=== PATIENT | male | born 1950 | race Caucasian/White ===

== ENCOUNTER → 2017-08-24 | Outpatient (CLI) | payer MEDICARE, OTHER | LOC: M ADAMS 14:27 | DX: M25.561 Pain in right knee (principal); M17.11 Unilateral primary osteoarthritis, right knee | CPT/HCPCS: 73564 ==

== ENCOUNTER → 2017-09-18 | Outpatient (REF) | payer MEDICARE, OTHER ==
[2017-09-18 13:31] LABS: HEMOGLOBIN 12.3 g/dl (14.0-18.0)
[2017-09-18 13:55] LABS: ALBUMIN 3.7 GM/DL (3.2-5.2)
[2017-09-18 13:55] LABS: FERRITIN 34 NG/ML (26-388); IRON (FE) 118 UG/DL (65-175); PERCENT SATURATION 33.4 % (19.7-50.0); TOTAL IRON BINDING CAPACITY 353 UG/DL (250-450)
[2017-09-18 14:19] LABS: ESTIMATED AVERAGE GLUCOSE 174 MG/DL (60-110); HEMOGLOBIN A1c 7.7 %
== END ==
LOC: M LABDRWAD 12:59
DX: Z01.818 Encounter for other preprocedural examination (principal); M17.11 Unilateral primary osteoarthritis, right knee; D63.8 Anemia in other chronic diseases classified elsewhere; M25.569 Pain in unspecified knee
CPT/HCPCS: 82040

== ENCOUNTER 2017-10-13 13:04 | Emergency (ER) | payer MEDICARE, BC, OTHER | END 2017-10-13 14:54 | disposition home or self-care (01) | LOC: M ED 13:04 | DX: R22.41 Localized swelling, mass and lump, right lower limb (principal); Z98.890 Other specified postprocedural states; I10 Essential (primary) hypertension; E66.9 Obesity, unspecified; Z87.891 Personal history of nicotine dependence; Z79.82 Long term (current) use of aspirin; Z79.899 Other long term (current) drug therapy | CPT/HCPCS: 93971 ==

== ENCOUNTER 2018-02-13 06:31 | Day surgery (SDC) | payer MEDICARE, BC, OTHER ==
[2018-02-13] MEDS: NS 1,000 ML IV (06:00)
[2018-02-13] MEDS ORDERED: PROPOFOL 200 MG/20 ML VIAL As Ordered (07:58)
== END 2018-02-13 08:27 | disposition home or self-care (01) ==
LOC: M OPP 06:31
DX: Z12.11 Encounter for screening for malignant neoplasm of colon (principal); K64.0 First degree hemorrhoids; D12.2 Benign neoplasm of ascending colon; K57.30 Diverticulosis of large intestine without perforation or abscess without bleeding; I10 Essential (primary) hypertension; Z79.82 Long term (current) use of aspirin; Z79.899 Other long term (current) drug therapy; Z80.41 Family history of malignant neoplasm of ovary; Z98.84 Bariatric surgery status; Z87.891 Personal history of nicotine dependence; Z95.5 Presence of coronary angioplasty implant and graft; Z96.651 Presence of right artificial knee joint
CPT/HCPCS: 45380

== ENCOUNTER → 2019-09-26 | Outpatient (REF) | payer MEDICARE, OTHER ==
[~2019-09-26] MED LIST: ASPI-255 PO; ATOR40TA75 PO; CARV12.5 PO; COLA100C5 PO; FLIN1CHW PO; IRON65TA PO; LISI-538 PO; OXYC-517 PO; VITA250L PO
[2019-09-26 18:20] LABS: IRON (FE) 63 UG/DL (65-175); PERCENT SATURATION 14.9 % (19.7-50.0); TOTAL IRON BINDING CAPACITY 422 UG/DL (250-450)
[2019-09-26 19:08] LABS: FOLATE > 24.0 NG/ML; VITAMIN B12 LEVEL > 2000 PG/ML
== END ==
LOC: M LAB REF 16:49
PROVIDERS: ATTEND Internal Medicine
DX: Z98.84 Bariatric surgery status (principal); D64.9 Anemia, unspecified

== ENCOUNTER → 2019-12-25 | Outpatient (REF) | payer MEDICARE, OTHER ==
[2019-12-25 12:50] LABS: PERCENT SATURATION 24.9 % (19.7-50.0)
== END ==
LOC: M LAB REF 11:19
PROVIDERS: ATTEND Internal Medicine
DX: D64.9 Anemia, unspecified (principal)

== ENCOUNTER → 2020-10-01 | Outpatient (REF) | payer MEDICARE, OTHER ==
[~2020-10-01] MED LIST changes: -LISI-538 PO; +LISI20TA33 PO
[2020-10-01 17:02] LABS: IRON (FE) 90 UG/DL (65-175); TOTAL IRON BINDING CAPACITY 322 UG/DL (250-450)
[2020-10-01 17:14] LABS: FOLATE > 24.0 NG/ML; VITAMIN B12 LEVEL > 2000 PG/ML
== END ==
LOC: M LAB REF 16:21
PROVIDERS: ATTEND Internal Medicine
DX: D64.9 Anemia, unspecified (principal); Z98.84 Bariatric surgery status

== ENCOUNTER → 2021-10-11 | Outpatient (REF) | payer MEDICARE, OTHER ==
[2021-10-11 16:53] LABS: IRON (FE) 106 UG/DL (65-175); PERCENT SATURATION 29.9 % (19.7-50.0); TOTAL IRON BINDING CAPACITY 354 UG/DL (250-450)
[2021-10-11 17:09] LABS: FOLATE > 24.0 NG/ML; VITAMIN B12 LEVEL > 2000 PG/ML
== END ==
LOC: M LAB REF 16:11
PROVIDERS: ATTEND Internal Medicine
DX: Z98.84 Bariatric surgery status (principal); Z79.899 Other long term (current) drug therapy

== ENCOUNTER → 2022-07-27 | Outpatient (REF) | payer MEDICARE, OTHER ==
[2022-07-27 13:19] LABS: BACTERIA, URINE LARGE AMOUNT; WBC, URINE TNTC /hpf (0-3)
[2022-07-27 13:21] LABS: RBC, URINE TNTC /hpf (0-3)
[2022-07-27 13:22] LABS: HYALINE CAST, URINE NONE SEEN /lpf (0-1); SQUAMOUS EPITHELIAL CELL URINE SMALL AMOUNT /hpf (SMALL AMT)
== END ==
LOC: M LAB REF 12:02
PROVIDERS: ATTEND Physician Assistant Medical
DX: R30.0 Dysuria (principal)

== ENCOUNTER → 2022-08-08 | Outpatient (REF) | payer MEDICARE, OTHER | LOC: M LAB REF 12:28 | PROVIDERS: ATTEND Internal Medicine | DX: N39.0 Urinary tract infection, site not specified (principal) ==

== ENCOUNTER → 2022-10-20 | Outpatient (REF) | payer MEDICARE, OTHER ==
[2022-10-20 18:57] LABS: TOTAL IRON BINDING CAPACITY 343 UG/DL (250-425)
[2022-10-20 18:58] LABS: IRON (FE) 98 UG/DL (65-175); PERCENT SATURATION 28.6 % (19.7-50.0)
[2022-10-20 18:59] LABS: FOLATE > 24.0 NG/ML (>5.4)
[2022-10-20 19:00] LABS: VITAMIN B12 LEVEL 1470 PG/ML (211-911)
== END ==
LOC: M LAB REF 17:18
PROVIDERS: ATTEND Internal Medicine
DX: Z98.84 Bariatric surgery status (principal)

== ENCOUNTER → 2023-10-30 | Outpatient (REF) | payer MEDICARE, OTHER ==
[2023-10-30 14:30] LABS: IRON (FE) 72 UG/DL (65-175); PERCENT SATURATION 21.4 % (19.7-50.0); TOTAL IRON BINDING CAPACITY 336 UG/DL (250-425)
[2023-10-30 14:32] LABS: FOLATE > 24.0 NG/ML (>5.4)
[2023-10-30 14:52] LABS: VITAMIN B12 LEVEL > 2000 PG/ML (211-911)
== END ==
LOC: M LAB REF 12:35
PROVIDERS: ATTEND Internal Medicine
DX: Z98.84 Bariatric surgery status (principal); D50.9 Iron deficiency anemia, unspecified

== ENCOUNTER → 2024-05-13 | Outpatient (CLI) | payer MEDICARE, BC | LOC: M CARPUL 13:22 | PROVIDERS: ATTEND Internal Medicine | DX: I35.0 Nonrheumatic aortic (valve) stenosis (principal) ==

== ENCOUNTER → 2024-11-05 | Outpatient (REF) | payer MEDICARE, OTHER ==
[2024-11-05 12:49] LABS: PHOSPHORUS LEVEL 4.7 MG/DL (2.4-5.1); TOTAL IRON BINDING CAPACITY 353 UG/DL (250-425)
[2024-11-05 12:50] LABS: FERRITIN 26.8 NG/ML (10.5-307.3); TOTAL 25(OH) VITAMIN D 52.9 NG/ML (20.0-100.0)
[2024-11-05 12:51] LABS: IRON (FE) 94 UG/DL (65-175); PERCENT SATURATION 26.6 % (19.7-50.0)
[2024-11-05 12:54] LABS: VITAMIN B12 LEVEL 1699 PG/ML (211-911)
[2024-11-05 12:55] LABS: FOLATE > 24.0 NG/ML (>5.4)
== END ==
LOC: M LAB REF 12:09
PROVIDERS: ATTEND Internal Medicine
DX: Z98.84 Bariatric surgery status (principal); R41.81 Age-related cognitive decline